=== PATIENT | female | born 1990 | race Caucasian/White ===

== ENCOUNTER → 2022-06-25 | Outpatient (CLI) | payer BC ==
[2022-06-25 18:08] LABS: HEMATOCRIT 39.5 % (36.0-47.0); HEMOGLOBIN 13.2 g/dl (12.0-15.5); MEAN CORPUSCULAR HGB CONC 33.4 g/dl (32.0-36.5); MEAN CORPUSCULAR VOLUME 89.8 fl (80.0-96.0); PLATELET COUNT, AUTOMATED 228 10^3/uL (150-450); WHITE BLOOD COUNT 11.1 10^3/uL (4.0-10.0)
[2022-06-25 18:22] LABS: TOTAL PROTEIN,RANDOM URINE 9.4 MG/DL (0.0-14.0)
[2022-06-25 18:26] LABS: CREATININE,RANDOM URINE 100.9 MG/DL
[2022-06-25 18:29] LABS: LDH LACTATE DEHYDROGENASE 163 U/L (120-246)
[2022-06-25 18:30] LABS: ALT/SGPT 19 U/L (7.0-40); AST/SGOT 17 U/L (<34); BILIRUBIN,TOTAL 0.3 MG/DL (0.3-1.2); CREATININE FOR GFR 0.55 MG/DL (0.55-1.30); GLOMERULAR FILTRATION RATE > 60.0 (>60)
[2022-06-25 18:55] LABS: HIV 1&2 SCREEN CENTAUR NEGATIVE (NEGATIVE)
[2022-06-25 19:34] LABS: GC DNA AMPLIFICATION NEGATIVE (NEGATIVE)
== END ==
LOC: M PLALAB 15:59
PROVIDERS: ATTEND Advanced Practice Midwife
DX: Z34.82 Encounter for supervision of other normal pregnancy, second trimester (principal)

== ENCOUNTER → 2022-08-22 | Outpatient (CLI) | payer BC | LOC: M WHC 12:58 | PROVIDERS: ATTEND Specialist | DX: Z34.82 Encounter for supervision of other normal pregnancy, second trimester (principal) ==

== ENCOUNTER → 2022-10-03 | Outpatient (CLI) | payer BC | LOC: M PLALAB 09:18 | PROVIDERS: ATTEND Specialist | DX: Z36.89 Encounter for other specified antenatal screening (principal) ==

== ENCOUNTER → 2022-12-01 | Outpatient (CLI) | payer BC, MEDICAID ==
[2022-12-01 15:38] LABS: HEMOGLOBIN 11.7 g/dl (12.0-15.5); MEAN CORPUSCULAR HEMOGLOBIN 28.3 pg (27.0-33.0); MEAN CORPUSCULAR HGB CONC 32.5 g/dl (32.0-36.5); MEAN CORPUSCULAR VOLUME 87.2 fl (80.0-96.0); PLATELET COUNT, AUTOMATED 218 10^3/uL (150-450); RED BLOOD COUNT 4.13 10^6/uL (4.00-5.40); WHITE BLOOD COUNT 11.9 10^3/uL (4.0-10.0)
[2022-12-01 17:07] LABS: GC DNA AMPLIFICATION NEGATIVE (NEGATIVE)
== END ==
LOC: M PLALAB 13:58
PROVIDERS: ATTEND Specialist
DX: Z36.85 Encounter for antenatal screening for Streptococcus B (principal); Z36.9 Encounter for antenatal screening, unspecified

== ENCOUNTER → 2022-12-01 | Outpatient (REF) | payer BC, MEDICAID | LOC: M PLALAB 13:06 | PROVIDERS: ATTEND Obstetrics & Gynecology | DX: Z36.89 Encounter for other specified antenatal screening (principal); Z3A.36 36 weeks gestation of pregnancy ==

== ENCOUNTER 2022-12-17 05:20 | Inpatient (IN) | payer BC ==
[2022-12-17] VITALS (9 sets, daily range): BP systolic 101–169; BP diastolic 52–93; TEMP 97.6; O2SAT 96–100
[~2022-12-17] VITALS: Ht 154.9 cm; Wt 81.2 kg
[~2022-12-17 05:20] MED LIST: BAYE81TA7 PO; CVS10CAP7 PO; MULTTAB20 PO
[2022-12-17] MEDS ORDERED: LACTATED RINGER'S 1000 ML IV STA (05:28)
[2022-12-17] MEDS ORDERED: BICITRA 30ML SOLN UDC PO ONE (05:30)
[2022-12-17] MEDS ORDERED: LR 1,000 ML IV SCH ×2 (05:30→09:45)
[2022-12-17] MEDS ORDERED: TUMS500C PO (05:58)
[2022-12-17] MEDS ORDERED: BENA25CA4 PO (05:58)
[2022-12-17] MEDS ORDERED: ceFAZolin SOD 2 GM in IV 1 EA IV ONE (06:00)
[2022-12-17 06:42] LABS: HEMATOCRIT 34.9 % (36.0-47.0); HEMOGLOBIN 11.5 g/dl (12.0-15.5); MEAN CORPUSCULAR HEMOGLOBIN 28.1 pg (27.0-33.0); MEAN CORPUSCULAR VOLUME 85.3 fl (80.0-96.0); PLATELET COUNT, AUTOMATED 222 10^3/uL (150-450); RED BLOOD COUNT 4.09 10^6/uL (4.00-5.40); WHITE BLOOD COUNT 13.5 10^3/uL (4.0-10.0)
[2022-12-17] MEDS ORDERED: MORPHINE PRES-FREE INJ 10 MG/10 ML VIAL As Ordered ONE (07:08)
[2022-12-17] MEDS ORDERED: SIMETHICONE 80MG CHEW TAB PO PRN (07:55)
[2022-12-17] MEDS ORDERED: ONDANSETRON 4MG 2ML VIAL IV PRN ×2 (07:55→09:45)
[2022-12-17] MEDS ORDERED: MOM 30ML SUSPENSION UDC PO PRN (07:55)
[2022-12-17] MEDS ORDERED: RHOGAM 300MCG (1500IU) INJ IM SCH (07:55)
[2022-12-17] MEDS ORDERED: OXYTOCIN DRIP 30 UNITS in IV 1 EA IV SCH (07:55)
[2022-12-17] MEDS ORDERED: PERCOCET 5MG/325MG TAB PO PRN ×2 (07:55)
[2022-12-17] MEDS ORDERED: ACETAMINOPHEN 1000MG 100ML IV BAG As Ordered ONE (08:20)
[2022-12-17] MEDS ORDERED: METOCLOPRAMIDE INJ 10MG/2ML VIAL As Ordered ONE (08:27)
[2022-12-17] MEDS ORDERED: OXYTOCIN INJ 10UNITS/ML 1ML VIAL As Ordered ONE (08:38)
[2022-12-17] MEDS ORDERED: fentaNYL 100 MCG/2 ML INJECTION As Ordered ONE (08:38)
[2022-12-17] MEDS ORDERED: GLYCOPYRROLATE INJ 0.2 MG/ML 2 ML VIAL As Ordered ONE (08:38)
[2022-12-17] MEDS ORDERED: KETOROLAC 60MG 2ML VIAL As Ordered ONE (08:38)
[2022-12-17] MEDS ORDERED: ONDANSETRON 4MG 2ML VIAL As Ordered ONE (08:38)
[2022-12-17] MEDS: PRENATAL VITAMINS CHEWABLE TABLET PO SCH (09:00)
[2022-12-17] MEDS ORDERED: OXYTOCIN 30UNITS IN 0.9% NaCl 500ML IV BAG As Ordered ONE (09:35)
[2022-12-17] MEDS ORDERED: oxyCODONE 5MG TAB PO PRN (09:45)
[2022-12-17] MEDS ORDERED: MEPERIDINE 25 MG/ML 1ML VIAL IV PRN (09:45)
[2022-12-17] MEDS: SLF 3 ML SYR IV SCH ×2 (09:45→17:45)
[2022-12-17] MEDS ORDERED: **NOTE PATIENT COMMENT** MISC XX SCH (09:45)
[2022-12-17] MEDS ORDERED: METOCLOPRAMIDE INJ 10MG/2ML VIAL IV PRN (09:45)
[2022-12-17] MEDS ORDERED: diphenhydrAMINE 50MG/ML VIAL IV PRN (09:45)
[2022-12-17] MEDS ORDERED: fentaNYL 100 MCG/2 ML INJECTION IV PRN (09:45)
[2022-12-17] MEDS ORDERED: NALOXONE INJ 0.4MG/1ML VIAL IV PRN ×2 (09:45)
[2022-12-17] MEDS: LR 1,000 ML IV SCH ×2 (12:05→18:30)
[2022-12-17] MEDS: ONDANSETRON 4MG 2ML VIAL IV PRN ×2 (15:19→21:21)
[2022-12-17] MEDS: KETOROLAC 30 MG/ML 1ML VIAL IV SCH ×2 (15:20→20:46)
[2022-12-17] MEDS: DOCUSATE SODIUM 100MG CAPSULE PO SCH (20:46)
[2022-12-18] MEDS: SLF 3 ML SYR IV SCH (01:45)
[2022-12-18 02:00] VITALS: BP 106/53; O2SAT 97
[2022-12-18] MEDS: KETOROLAC 30 MG/ML 1ML VIAL IV SCH (03:36)
[2022-12-18 06:00] VITALS: BP 103/58; O2SAT 98
[2022-12-18 07:40] LABS: HEMATOCRIT 28.7 % (36.0-47.0); MEAN CORPUSCULAR HEMOGLOBIN 28.4 pg (27.0-33.0); MEAN CORPUSCULAR HGB CONC 33.1 g/dl (32.0-36.5); MEAN CORPUSCULAR VOLUME 85.9 fl (80.0-96.0); PLATELET COUNT, AUTOMATED 187 10^3/uL (150-450); RED BLOOD COUNT 3.34 10^6/uL (4.00-5.40); WHITE BLOOD COUNT 15.4 10^3/uL (4.0-10.0)
[2022-12-18 07:43] LABS: HEMOGLOBIN 9.5 g/dl (12.0-15.5)
[2022-12-18 09:12] VITALS: BP 113/64; O2SAT 99
[2022-12-18] MEDS: IBUPROFEN 800 MG TAB PO SCH ×2 (10:34→18:19)
[2022-12-18] MEDS: DOCUSATE SODIUM 100MG CAPSULE PO SCH ×2 (10:34→20:23)
[2022-12-18] MEDS: PRENATAL VITAMINS CHEWABLE TABLET PO SCH (10:34)
[2022-12-18 14:06] VITALS: BP 125/59; O2SAT 99
[2022-12-18 17:36] VITALS: BP 121/58
[2022-12-18 22:00] VITALS: BP 126/60; O2SAT 100
[2022-12-19 02:00] VITALS: BP 120/62; O2SAT 98
[2022-12-19] MEDS: IBUPROFEN 800 MG TAB PO SCH (02:35)
[2022-12-19 06:00] VITALS: BP 124/64; O2SAT 99
[2022-12-19] MEDS ORDERED: MEASLES,MUMPS,RUBELLA VACCINE INJ (MMR-II) SC.IMMUN ONE (09:00)
[2022-12-19] MEDS: PRENATAL VITAMINS CHEWABLE TABLET PO SCH (09:23)
[2022-12-19] MEDS: DOCUSATE SODIUM 100MG CAPSULE PO SCH (09:23)
[2022-12-19 10:00] VITALS: BP 134/64; O2SAT 98
[2022-12-19] MEDS ORDERED: PERCOCET PO (13:59)
[2022-12-19] MEDS ORDERED: IBUP80TA PO (13:59)
== END 2022-12-19 14:50 | disposition home or self-care (01) | DRG 540 ==
LOC: M LDI 05:20 → M OBS 10:55
PROVIDERS: ADMIT Obstetrics & Gynecology; ATTEND Obstetrics & Gynecology
PROC: 0UB70ZZ Excision of Bilateral Fallopian Tubes, Open Approach (ICD-10-PCS; 2022-12-17)
PROC: 10D00Z1 Extraction of Products of Conception, Low, Open Approach (ICD-10-PCS; principal; 2022-12-17 07:30)
DX: O34.211 Maternal care for low transverse scar from previous cesarean delivery (principal); Z30.2 Encounter for sterilization; Z3A.38 38 weeks gestation of pregnancy; Z37.0 Single live birth

== ENCOUNTER → 2023-08-18 | Outpatient (REF) | payer BC ==
[~2023-08-18] MED LIST changes: +BENA25CA4 PO; +IBUP80TA PO; +PERCOCET PO; +TUMS500C PO
== END ==
LOC: M LAB REF 19:47
PROVIDERS: ATTEND Physician Assistant
DX: R30.0 Dysuria (principal)